=== PATIENT | male | born 1975 | race Caucasian/White ===

== ENCOUNTER 2025-03-26 19:54 | Emergency (ER) | payer OTHER, SELFPAY ==
[2025-03-26] VITALS (31 sets, daily range): BP systolic 89–238; BP diastolic 62–163; PULSE 97–140; RESP 12–30; TEMP 36.2–36.8; O2SAT 88–100; BMI 27.6
--- NOTE | 2025-03-26 20:00 | PD.EDSOB ---
ED SOB =RME/HPI General Chief Complaint: Shortness of Breath/Dyspnea Stated Complaint: SHORTNESS OF BREATH Time Seen by Provider: 03/26/25 20:25 Arrival date/time: 03/26/25 19:54 Mode of arrival: EMS MARNIE / MAY TOLENTINO Complaint: shortness of breath RME / HPI Narrative: DR. 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 Patient reportedly coughed and developed severe difficulty breathing and in [id number] respiratory distress. Oxygen saturations in the high 80 percentile. EMS administered epinephrine, IV established in the field, and patient was placed on high-flow O2 via nonrebreather. Saturation improved to low 90 percentile range. PMH: GERD, Cervical radiculopathy post fusion x2, No DM, Asthma, or HTN PSH: Cervical Fusion x2 Allergies: Codeine Social: Tobacco, Unknown Alcohol or Illicit Drug Abuse Related Data Previous Rx's ?Medication ?Instructions ?Recorded cephalexin 500 mg capsule 500 mg PO QID #40 caps 03/22/21 hydrocodone 5 mg-acetaminophen 325 1 - 2 tab PO Q4H #30 tabs 03/22/21 mg tablet Allergies Allergy/AdvReac Type Severity Reaction Status Date / Time codeine AdvReac Mild UPSET Verified 03/22/21 03:32 STOMACH Review of Systems Review of Systems Systems Reviewed: All systems reviewed, normal except as documented Past Medical History Past Medical History CARDIAC: Positive Hypertension RESPIRATORY: Positive Asthma GASTROINTESTINAL: Positive Gastroesophageal Reflux Disease Social History SMOKING STATUS: Current every day smoker ED Exam Narrative Physical exam: GEN. APPEARANCE: The patient is alert awake oriented X-3 under no distress, lying down comfortably, does not look ill/toxic. Patient has good eye contact. Patient is cooperative. VITALS: All vitals were reviewed and the pulse ox is 100% on 8L/min via nonrebreather mask, which is normal according to my interpretation HEENT: Normocephalic, atraumatic and nontender. Pupils are equal and reactive. Oral mucosa is moist. NECK: Marked circumferential edema with noted stridor. There is no thyromegaly and no lymphadenopathy. CHEST: Nontender on palpation no deformity and no crepitus. CARDIOVASCULAR: Heart regular rhythm, no murmur or gallop rub or extra beats. LUNGS: Clear to auscultation bilaterally with symmetrical chest rise. No laboring tachypnea or wheezing. No intercostal subcostal retraction. No rales and no rhonchi. ABDOMEN: Soft, flat, nontender to palpation, no guarding or rebound tenderness. There are no abnormal masses palpated. No pulsatile masses or bruits. Active and normal bowel sounds. EXTREMITIES: Normal inspection and palpation. No edema. No cyanosis. Patient is able to move all 4 extremities well SKIN: Warm and dry, no rashes noted. MUSCULOSKELETAL: No lumbar or midline bony tenderness. There is no CVA tenderness. No paraspinal muscle spasm or tenderness. NEURO: Cranial nerves II through XII grossly intact. There are no focal neurologic deficits noted. GCS is 15 PSYCHIATRIC: Patient is in normal mood and affect, cooperative. LYMPHATICS: No major lymphadenopathy noted. Course Quality Measures none Orders Category Date Time Status CT Screening NOW Care 03/26/25 20:16 Active Emergency Titration Protocol Stat Care 03/26/25 21:56 Ordered Intubation NOW Care 03/26/25 21:[address] angio carotid Stat Exams 03/26/25 20:[address] angio chest Stat Exams 03/26/25 20:15 Completed XR chest 1V post procedure Stat Exams 03/26/25 20:12 Completed ABG [Arterial Blood Gas] Stat Lab 03/26/25 21:47 Completed CBC Stat Lab 03/26/25 20:49 Completed Comprehensive Metabolic Panel Stat Lab 03/26/25 20:49 Completed Partial Thromboplastin Time Stat Lab 03/26/25 20:49 Completed Sputum Culture and Gram Stain Routine Lab 03/26/25 21:33 Received Type and Screen Stat Lab 03/26/25 20:49 Completed Dexamethasone Inj [Decadron Inj] Med 03/26/25 20:25 Discontinued 10 mg IVP X1 ONE Etomidate Inj [Amidate Inj] Med 03/26/25 20:00 Discontinued 20 mg .ROUTE .STK-MED ONE Etomidate Inj [Amidate Inj] Med 03/26/25 20:28 Discontinued 20 mg IVP X1 ONE Metoclopramide Inj [Reglan Inj] Med 03/26/25 20:47 Discontinued 10 mg IVP X1 ONE Morphine* Inj Med 03/26/25 20:47 Discontinued 4 mg IVP X1 ONE Propofol 1,000 mg Ivpb [Diprivan Ivpb] Med 03/26/25 20:28 Discontinued 1,000 mg in 100 ml IV .STK-MED Propofol 1,000 mg Ivpb [Diprivan Ivpb] Med 03/26/25 20:26 Active 1,000 mg in 100 ml IV 5 mcg/kg/min Propofol Inj [Diprivan Inj] Med 03/26/25 20:25 Discontinued 100 mg IV X1 ONE Rocuronium Inj [Zemuron Inj] Med 03/26/25 20:00 Discontinued 100 mg .ROUTE .STK-MED ONE Rocuronium Inj [Zemuron Inj] Med 03/26/25 20:28 Discontinued 70 mg IV X1 ONE Sodium Chloride 0.9% 500 ml [Ns] 500 ml Med 03/26/25 22:07 Active IV 999 mls/hr fentaNYL 2,500 MCG/250 ML BAG [Sublimaze Inj 2,500 MCG/ Med 03/26/25 21:35 Discontinued 250 ML BAG] 2,500 mcg in 250 ml IV .STK-MED fentaNYL 2,500 MCG/250 ML BAG [Sublimaze Inj 2,500 MCG/ Med 03/26/25 21:38 Active 250 ML BAG] 2,500 mcg in 250 ml IV 25 mcg/hr fentaNYL INJ [Sublimaze Inj] Med 03/26/25 21:37 Discontinued 100 mcg .ROUTE .STK-MED ONE fentaNYL INJ [Sublimaze Inj] Med 03/26/25 21:38 Discontinued 100 mcg IVP X1 ONE Volume Ventilator Stat RT 03/26/25 21:22 Active Vital Signs Vital signs: Vital Signs Temperature 98.2 F 03/26/25 19:59 Pulse Rate 123 H 03/26/25 19:59 Respiratory Rate 21 H 03/26/25 19:59 Blood Pressure 148/115 H 03/26/25 19:59 Pulse Oximetry (%) 100 03/26/25 19:59 Oxygen Delivery Method Oxy Mask 03/26/25 19:59 Oxygen Flow Rate 8 03/26/25 19:59 PROCEDURES: Intubation Time out performed: Yes sedative: Etomidate Mg Given: 20 paralytic: Rocuronium Mg Given: 70 Laryngoscope: fiber optic video scope Assist Device Used: fiber optic device ET Tube Size: 6 ET Tube Uncuffed: Yes Tube Secured Depth (cm): 22 Tube Secured Location: teeth Tube Placement Confirmation: visualized tube passing through cords, equal breath sounds bilaterally and confirmation by capnometry Patient Tolerated Procedure: well and no complications Intubation Complications: other (severe airway encroachment) Shortness of Breath / Dyspnea MDM Narrative MDM Narrative:: Scribe Attestation: I, Helen Montes De Oca, am scribing for and in the presence of Dr. Churchill. Provider Notation: Although this document has been carefully reviewed, there may still be some phonetic and other typographical errors. These errors are purely grammatical due to imperfections in the software program and should not be construed in any way to compromise the substance of the patient's medical care during this visit. 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 Patient reportedly coughed and developed severe difficulty breathing and in [id number] respiratory distress. Please see PE findings. Patient found to be in severe respiratory distress with audible stridor. Decision made to intubate early given marked diffuse neck swelling and suspected hemorrhage (please see procedure note). Patient was placed on Propofol drip for sedation. Contact made with patient's primary surgeon who suggests transfer to [facility]. Final diagnoses include post-surgical edema and acute respiratory failure. Patient data External records reviewed:: [facility] previous records (No recent ED records available for review) and EMS form Clinical information provided by:: EMS Social determinants that could affect healthcare access:: none Patient has the following chronic illnesses:: GERD, Asthma, HTN, Cervical Radiculopathy How is presenting disease/condition affected by chronic disease/condition?: exacerbated by Evaluation data The following diagnostics were reviewed and interpreted by me:: lab results and radiology exam(s) Lab and/or radiology exams considered but not ordered:: None Interpretation Summary: RADIOLOGY Chest X-Ray: FINDINGS: Paratracheal region appears prominent Normal heart size Endotracheal tube tip 7.7 cm above john No aspiration pneumonia IMPRESSION: Prominent paratracheal mediastinal region When the patient's condition permits recommend PA lateral chest follow-up Endotracheal tube tip 7.7 cm above john No aspiration pneumonia Chest CTA: FINDINGS: There is soft tissue air anterior to the right clavicle Large soft tissue mass with irregular areas of enhancement surrounding and posterior to the trachea in the neck, transverse dimension up to 10 cm with air densities, extending into the upper mediastinum as well as all the way to the pretracheal region No thoracic aortic aneurysm dilatation Tracheal tube tip 5 cm above john Pulmonary artery segments are not enlarged Granuloma in the right midlung Moderate right pleural fluid Retrocardiac gastric hernia Fatty infiltration throughout the liver Moderate osteopenia. Impression: Extensive soft tissue mass with air densities in the neck surrounding the trachea with irregular areas of contrast enhancement extending into the upper mediastinum Differential would include large hematoma with active areas of bleeding, neck and mediastinal tumor, soft tissue neck and mediastinal infection not excluded, the appearance should be clinically correlated Negative for pulmonary artery emboli CT Neck Angiography: Findings: Large irregular soft tissue mass prevertebral extending from the oropharynx into the mediastinum, displacing the trachea far anteriorly, transverse dimension nearly 10 cm, AP dimension nearly 7 cm Areas of enhancement lateral to this mass which may be partly thyroid Air densities in this mass The mass extends into the anterior mediastinum all the way to the trachea extending posterior and below the trachea Air density in the soft tissue anterior and retroclavicular on the right Carotid arteries are displaced laterally by this large mass likely hematoma, carotid arteries and vertebral arteries appear grossly intact Tracheal tube projects well above the john No large vessel cerebral occlusion IMPRESSION: Very large soft tissue mass in the neck extending from the oropharynx into the mediastinum displacing the trachea far anteriorly Highest on the differential list is hematoma, less likely infection less likely tumor mass, the appearance should be clinically correlated Medications / Prescriptions Medications or Prescriptions considered but not ordered:: None Medication administrations:: Medication Administration History Propofol (Diprivan Ivpb) 1,000 mg in 100 mls @ 2.926 mls/hr IV .Q24H PRN; Protocol PRN Reason: Per Protocol Stop: 04/25/25 20:25 Last Titration: 03/26/25 22:08 Dose: 45 mcg/kg/min, 26.331 mls/hr Documented By: Titration: 03/26/25 21:20 Dose: 50 mcg/kg/min, 29.257 mls/hr Documented By: Titration: 03/26/25 21:01 Dose: 20 mcg/kg/min, 11.703 mls/hr Documented By: Titration: 03/26/25 20:56 Dose: 15 mcg/kg/min, 8.777 mls/hr Documented By: Titration: 03/26/25 20:51 Dose: 10 mcg/kg/min, 5.851 mls/hr Documented By: Admin: 03/26/25 20:33 Dose: 5 mcg/kg/min, 2.926 mls/hr Documented By: EB Fentanyl Citrate (Sublimaze Inj 2,500 Mcg/250 Ml Bag) 2,500 mcg in 250 mls @ 2.5 mls/hr IV .Q24H PRN; Protocol PRN Reason: Per Protocol Stop: 03/31/25 21:37 Last Admin: 03/26/25 21:50 Dose: 25 mcg/hr, 2.5 mls/hr Documented By: EB Co-signed By: DIMAS Sodium Chloride (Ns) 500 mls @ 999 mls/hr IV .Q31M ONE Stop: 03/26/25 22:37 Discontinued Medications Dexamethasone Sodium Phosphate (Dexamethasone Sod Phos Inj 10 Mg/Ml Vial) 10 mg IVP X1 ONE Stop: 03/26/25 20:26 Last Admin: 03/26/25 20:42 Dose: 10 mg Documented By: EB Etomidate (Etomidate Inj 2 Mg/Ml Vial 10 Ml) Confirm Administered Dose 20 mg .ROUTE .STK-MED ONE Stop: 03/26/25 20:01 Last Admin: 03/26/25 20:29 Dose: Not Given Documented By: DIMAS Non-Admin Reason: Override Medication Etomidate (Etomidate Inj 2 Mg/Ml Vial 10 Ml) 20 mg IVP X1 ONE Stop: 03/26/25 20:29 Last Admin: 03/26/25 20:07 Dose: 20 mg Documented By: CINTIA Fentanyl Citrate (Fentanyl Cit Inj 50 Mcg/Ml Amp 2ml) 100 mcg IVP X1 ONE Stop: 03/26/25 21:39 Last Admin: 03/26/25 21:46 Dose: 100 mcg Documented By: EB Fentanyl Citrate (Fentanyl Cit Inj 50 Mcg/Ml Amp 2ml) Confirm Administered Dose 100 mcg .ROUTE .STK-MED ONE Stop: 03/26/25 21:38 Last Admin: 03/26/25 21:49 Dose: Not Given Documented By: RC Non-Admin Reason: Override Medication Propofol (Diprivan Ivpb) Confirm Administered Dose 1,000 mg in 100 mls @ ud IV .STK-MED ONE Stop: 03/26/25 20:29 Last Admin: 03/26/25 20:40 Dose: Not Given Documented By: EB Non-Admin Reason: Override Medication Fentanyl Citrate (Sublimaze Inj 2,500 Mcg/250 Ml Bag) Confirm Administered Dose 2,500 mcg in 250 mls @ ud IV .STK-MED ONE Stop: 03/26/25 21:36 Last Admin: 03/26/25 21:49 Dose: Not Given Documented By: RC Non-Admin Reason: Override Medication Metoclopramide HCl (Metoclopramide Inj 5 Mg/Ml Vial 2 Ml) 10 mg IVP X1 ONE; Protocol Stop: 03/26/25 20:48 Last Admin: 03/26/25 21:21 Dose: 10 mg Documented By: EB Morphine Sulfate (Morphine Sulf Inj 4 Mg/Ml Vial) 4 mg IVP X1 ONE Stop: 03/26/25 20:48 Last Admin: 03/26/25 21:20 Dose: 4 mg Documented By: EB Propofol (Propofol Inj 10 Mg/Ml Vial 20 Ml) 100 mg IV X1 ONE Stop: 03/26/25 20:26 Last Admin: 03/26/25 20:50 Dose: Not Given Documented By: EB Non-Admin Reason: Change of Condition Rocuronium Morenci (Rocuronium Inj 10 Mg/Ml Vial 10 Ml) Confirm Administered Dose 100 mg .ROUTE .STK-MED ONE Stop: 03/26/25 20:01 Last Admin: 03/26/25 20:29 Dose: Not Given Documented By: RC Non-Admin Reason: Override Medication Rocuronium Morenci (Rocuronium Inj 10 Mg/Ml Vial 10 Ml) 70 mg IV X1 ONE Stop: 03/26/25 20:29 Last Admin: 03/26/25 20:48 Dose: 70 mg Documented By: EB Co-signed By: DIMAS Comments: 30 wasted See above if any Consultations Consultation(s) initiated? (list below): Yes Consultation #1 (Physician, Specialty, Details): Dr. Ortze made aware of the patient?s HPI, PMHx, lab and/or radiology results. Discussed treatment plan. Advises transfer to [facility]. Time: 20:20 Consultation #2 (Physician, Specialty, Details): Patient accepted for transfer at [facility] by Dr. Orourke. Time: 22:15 Diagnosis Shortness of Breath Differential Diagnosis: pulmonary embolism and other (post-surgical edema, acute respiratory failure) Most likely diagnosis given after review of the tests above:: Post-surgical edema and acute respiratory failure Admission Indicated Admission indicated?: not indicated Explain why admission is indicated or not indicated:: Pending transfer to [facility] Admission Request Was there a request for admission?: No Disposition Plan Disposition Plan: Transfer Critical Care Time Critical Care Time Critical Care Time: Yes Total Critical Care Time (min.): 40 Attestation: The high probability of sudden, clinically significant deterioration in the patient?s condition required the highest level of my preparedness to intervene urgently. The services I provided to this patient were to treat and/or prevent clinically significant deterioration. Services included the following: chart data review, reviewing nursing notes and/or old charts, documentation time, diet consultant collaboration regarding findings and treatment options, medication orders and management, direct patient care, vital sign assessments and ordering, interpreting and reviewing diagnostic studies and lab tests. Aggregate critical care time includes only time during which I was engaged in work directly related to the patient?s care, as described above, whether at bedside or elsewhere in the Emergency Department. It did not include time spent performing other reported procedures or the services of residents, students, nurses or physician assistants. Discharge Plan Plan Patient Disposition: [facility]fer [facility] Pt Being Transferred to: [facility] Prescriptions/Referrals Prescriptions/Med Rec: No Action hydrocodone-acetaminophen 5-325 mg tablet 1 - 2 tab PO Q4H MDD 6 Qty: 30 0RF cephalexin 500 mg capsule 500 mg PO QID Qty: 40 0RF Problem List Clinical Impression: Postoperative edema, Acute respiratory failure Patient/Caregiver Discharge Instructions Print Language: Korean Stand Alone Forms: Margot Award Info., Patient Portal Info Letter
[2025-03-26] MEDS: ETOMIDATE INJ 2 MG/ML VIAL 10 ML 20 MG IVP (20:07)
--- NOTE | 2025-03-26 20:12 | XR_ITS ---
EXAMINATION: AP chest single view TECHNIQUE: AP portable supine chest single view Date and time: March 26, 2025, 2033 hours, comparison March 01, 2017 INDICATIONS: Hypoxic respiratory failure post intubation FINDINGS: Paratracheal region appears prominent Normal heart size Endotracheal tube tip 7.7 cm above john No aspiration pneumonia IMPRESSION: Prominent paratracheal mediastinal region When the patient's condition permits recommend PA lateral chest follow-up Endotracheal tube tip 7.7 cm above john No aspiration pneumonia
--- NOTE | 2025-03-26 20:15 | XR_ITS ---
Examination: CTA carotids with intravenous contrast CTA brain, head with intravenous contrast. 2-D sagittal, coronal reconstructions. 3-D reconstructions. Exam date and time: March 26, 2025, 2108 hours INDICATIONS: Onset neck swelling with hypoxic respiratory failure post intubation today CTDI: vol (mGy) 101.19 DLP: (mGycm) 707 Technique: Multiple CTA axial brain, head carotid images post intravenous contrast injection 75 cc Isovue-370 cc, Isovue-370. 2-D sagittal, coronal reconstructions. 3-D reconstructions, 3-D post processing including vascular maximum intensity projection images. Low dose protocols were performed. One or more of the following dose reduction techniques were used; automated exposure control, adjustment of the mA and/or KV according to patient size, use of iterative reconstruction technique. Findings: Large irregular soft tissue mass prevertebral extending from the oropharynx into the mediastinum, displacing the trachea far anteriorly, transverse dimension nearly 10 cm, AP dimension nearly 7 cm Areas of enhancement lateral to this mass which may be partly thyroid Air densities in this mass The mass extends into the anterior mediastinum all the way to the trachea extending posterior and below the trachea Air density in the soft tissue anterior and retroclavicular on the right Carotid arteries are displaced laterally by this large mass likely hematoma, carotid arteries and vertebral arteries appear grossly intact Tracheal tube projects well above the john No large vessel cerebral occlusion IMPRESSION: Very large soft tissue mass in the neck extending from the oropharynx into the mediastinum displacing the trachea far anteriorly Highest on the differential list is hematoma, less likely infection less likely tumor mass, the appearance should be clinically correlated
--- NOTE | 2025-03-26 20:15 | XR_ITS ---
Examination: CTA chest with intravenous contrast 2-D reconstructions 3-D reconstructions, vascular Date and time of exam: March 26, 2025, 2109 hours INDICATIONS: Hypoxic respiratory failure, clinical diagnosis pulmonary embolism CTDI: vol (mGy) 50.54 DLP: (mGycm) 740 Technique: Multiple axial sections of the thorax have been obtained. 3 mm slice thickness, from below the hemidiaphragms to above the apices of the lungs. Mediastinal and lung density settings have been obtained. 2-D sagittal and coronal reconstructions. 3-D angiographic renderings, 3-D volume renderings, 3D post processing, vascular maximum intensity projections obtained. Contrast administered is 75 cc Isovue-370 Low dose protocols dose reduction techniques automated exposure control FINDINGS: There is soft tissue air anterior to the right clavicle Large soft tissue mass with irregular areas of enhancement surrounding and posterior to the trachea in the neck, transverse dimension up to 10 cm with air densities, extending into the upper mediastinum as well as all the way to the pretracheal region No thoracic aortic aneurysm dilatation Tracheal tube tip 5 cm above john Pulmonary artery segments are not enlarged Granuloma in the right midlung Moderate right pleural fluid Retrocardiac gastric hernia Fatty infiltration throughout the liver Moderate osteopenia. Impression: Extensive soft tissue mass with air densities in the neck surrounding the trachea with irregular areas of contrast enhancement extending into the upper mediastinum Differential would include large hematoma with active areas of bleeding, neck and mediastinal tumor, soft tissue neck and mediastinal infection not excluded, the appearance should be clinically correlated Negative for pulmonary artery emboli
[2025-03-26] MEDS: PROPOFOL 1,000 MG IVPB 1,000 MG/100 ML VIAL 2.926 MG IV (20:33)
[2025-03-26] MEDS: DEXAMETHASONE SOD PHOS INJ 10 MG/ML VIAL IVP (20:42)
[2025-03-26] MEDS: ROCURONIUM INJ 10 MG/ML VIAL 10 ML 70 MG IV (20:48)
[2025-03-26 21:13] LABS: Basophils # (Auto) 0.0 Thou/mm3 (0.0-0.2); Basophils % (Auto) 0 % (0-2.5); Eosinophils # (Auto) 0.0 Thou/mm3 (0.0-0.5); Eosinophils % (Auto) 0 % (0-10); Hematocrit 42.5 % (41.0-53.0); Hemoglobin 14.5 g/dL (13.5-16.0); Immature Granulocytes Auto 0.07 Thou/mm3 (0.00-0.00); Lymphocytes # (Auto) 4.0 Thou/mm3 (1.0-4.8); Lymphocytes % (Auto) 26 % (10-50); Mean Corpuscular HGB Conc 34.1 g/dl (31.0-37.0); Mean Corpuscular Hemoglobin 33.0 pg (25.0-35.0); Mean Corpuscular Volume 97 fL (80-100); Monocytes # (Auto) 1.5 Thou/mm3 (0.0-0.8); Monocytes % (Auto) 10 % (0-12); Neutrophils # (Auto) 9.7 Thou/mm3 (1.8-7.7); Neutrophils % (Auto) 64 % (37-80); Nucleated Red Blood Cell # 0.00 Thou/mm3 (0.00-0.00); Nucleated Red Blood Cell % 0 /100 WBC (0); Platelet Count 297 Thou/mm3 (140-440); RDW Standard Deviation 47.5 fL (35.1-43.9); Red Blood Count 4.40 Miln/mm3 (4.50-5.90); White Blood Count 15.2 Thou/mm3 (3.8-10.6)
[2025-03-26] MEDS: MORPHINE SULF INJ 4 MG/ML VIAL IVP (21:20)
[2025-03-26] MEDS: METOCLOPRAMIDE INJ 5 MG/ML VIAL 2 ML 10 MG IVP (21:21)
[2025-03-26 21:29] LABS: Partial Thromboplastin Time 21.1 Seconds (22.0-36.0)
[2025-03-26 21:34] LABS: Alanine Aminotransferase 34 U/L (10-49); Albumin, Serum 4.4 gm/dL (3.5-5.0); Albumin/Globulin Ratio 1.9 (1.2-2.2); Alkaline Phosphatase 66 U/L (46-116); Anion Gap 10 (7-16); Aspartate Amino Transferase 34 U/L (0-34); BUN/Creatinine Ratio 8 Ratio (12-20); Bilirubin,Total 0.6 mg/dL (0.3-1.2); Blood Urea Nitrogen 8 mg/dL (9-23); Calcium 8.8 mg/dL (8.3-10.6); Calcium (Corrected) 8.8 mg/dL (8.5-10.1); Carbon Dioxide 23.2 mMol/L (20.0-31.0); Chloride 108 mMol/L (98-107); Creatinine (Component) 1.0 mg/dL (0.6-1.3); Estimated Creatinine Clearance 102.8 mL/min (>60); Globulin 2.3 gm/dL (2.3-3.5); Glucose 255 mg/dL (74-106); Osmolality,Calculated 288 (275-295); Potassium 3.3 mMol/L (3.4-5.1); Sodium 141 mMol/L (136-145); Total Protein 6.7 gm/dL (5.7-8.2); eGFR > 60 See Note
[2025-03-26] MEDS: fentaNYL CIT INJ 50 mCg/ML AMP 2ML 100 MCG IVP (21:46)
[2025-03-26] MEDS: fentaNYL 2,500 MCG/250 ML BAG 2,500 MCG/250 ML BAG IV (21:50)
[2025-03-26 21:52] LABS: Base Excess -4 (-3-3); HCO3 23 mEq/L (20-26); Inspired Oxygen, FIO2 100 %; O2 Saturation 101 % (91-98); PCO2 43 mmHg (32.0-48.0); PO2 403 mmHg (83-108); pH, Arterial 7.32 (7.35-7.45)
[2025-03-26 21:53] LABS: Puncture Site Right Radial
[2025-03-26 21:54] LABS: Allen Test Performed/OK
[2025-03-26] MEDS: SODIUM CHLORIDE 0.9% 500 ML 500 ML 999 ML IV (22:20)
--- NOTE | 2025-03-26 22:20 | PC.NURSE ---
[facility] WAS CONTACTED FOR POSSIBLE AIR TRANSPORT, WAITING FOR CALL BACK
--- NOTE | 2025-03-26 22:37 | PC.NURSE ---
I CONTACTED [facility] FOR AN UPDATE AND THEY STATED THAT ALL [facility] HAVE DENIED TRANSPORT DUE TO WEATHER AND TO CALL BACK AT 0700 FOR A WEATHER RECHECK
--- NOTE | 2025-03-26 22:49 | PC.NURSE ---
I CONTACTED [facility] TO SEE IF THEY WERE AVAILABLE FOR AIR TRANSPORT, THEY WILL CALL BACK
--- NOTE | 2025-03-26 22:55 | PC.NURSE ---
[facility] RETURNED CALL AND UNFORTUNATELY THEY ARE UNVAILABLE FOR AIR FLIGHT DUE TO WEATHER, STATED TO CALL BACK AROUND 0900 FOR A WEATHER RE-CHECK
[2025-03-26] MEDS: TRANEXAMIC ACID 1,000 MG IVPB 1,000 MG/100 ML BAG 200 MG IV (23:02)
--- NOTE | 2025-03-26 23:34 | PC.NURSE ---
20 inches at 2330
--- NOTE | 2025-03-26 23:47 | PC.NURSE ---
2345 Remains at 20 inches no change
--- NOTE | 2025-03-27 00:13 | PC.NURSE ---
0000 measure remains at 20 inches with no changes
--- NOTE | 2025-03-27 00:13 | PC.NURSE ---
0015, Pt neck still firm, circumference remains unchanged at 20 inches
--- NOTE | 2025-03-27 00:23 | PC.NURSE ---
8867 PT ACCEPTED TO [facility] BY DR MACEDO. REPORT TO [phone]. CALL WITH ETA TO [phone]. [address] [place] [id number] [address] ICU BED 4.
[2025-03-27] MEDS: PROPOFOL 1,000 MG IVPB 1,000 MG/100 ML VIAL 26.331 MG IV ×3 (00:29→04:22)
[2025-03-27 00:34] VITALS: BP 105/81; PULSE 80; RESP 20; TEMP 36.4; O2SAT 99
--- NOTE | 2025-03-27 00:39 | PC.NURSE ---
0030 20 inches no changes
--- NOTE | 2025-03-27 01:05 | PC.NURSE ---
0030 Pt neck circumference remains 20 inches with no changes
--- NOTE | 2025-03-27 01:06 | PC.NURSE ---
0045, Neck size remains unchanged 20
--- NOTE | 2025-03-27 01:07 | PC.NURSE ---
0100, neck circumference remains unchanged at 20
[2025-03-27 02:03] VITALS: BP 112/78; PULSE 75; RESP 19; O2SAT 100
[2025-03-27 03:41] VITALS: BP 107/80; PULSE 74; RESP 16; TEMP 36.6; O2SAT 99
[2025-03-27 05:09] LABS: Base Excess -1 (-3-3); HCO3 25 mEq/L (20-26); Inspired Oxygen, FIO2 70 %; O2 Saturation 100 % (91-98); PCO2 43 mmHg (32.0-48.0); PO2 132 mmHg (83-108); pH, Arterial 7.36 (7.35-7.45)
[2025-03-27 05:10] LABS: Allen Test Performed/OK; Puncture Site Right Radial
--- NOTE | 2025-03-27 05:53 | PC.LAC ---
Pt remains sedasted but has moments of being awake and alert he denies too much pain or discomfort he is able to open his eyes and respond via hand squeeze, eye blink or he also wrote on paper to wash his face Pt remains pleasant and pain and sedation controlled no vent disruptions or decline in Pt condition related to level of sedation. MD lutz
[2025-03-27 06:03] VITALS: BP 100/69; PULSE 75; RESP 18; TEMP 36.1; O2SAT 100
[2025-03-27 06:04] VITALS: BP 100/69; PULSE 78; RESP 18; TEMP 36.6; O2SAT 100
--- NOTE | 2025-03-27 07:28 | PC.NURSE ---
rreport given to icu nurse for transport
[2025-03-27 07:58] VITALS: BP 122/82; PULSE 79
[2025-03-27] MEDS: Norepinephrine/D5W 8mg/250ml 8 MG/250 ML BAG 9.143 MG IV (07:58)
[2025-03-27] MEDS: PROPOFOL 1,000 MG IVPB 1,000 MG/100 ML VIAL 23.405 MG IV (08:01)
== END 2025-03-27 07:56 | disposition short-term general hospital (02) ==
PROVIDERS: Nurse Practitioner Family; Emergency Provider Emergency Medicine; PCP Family Medicine
DX: J96.00 Acute respiratory failure, unspecified whether with hypoxia or hypercapnia (principal); F19.10 Other psychoactive substance abuse, uncomplicated; Z46.82 Encounter for fitting and adjustment of non-vascular catheter
CPT/HCPCS: 36415; 36600; 51702; 70498; 71275; 80053; 82803; 85025; 85730; 86850; 86900; 86901; 87205; 94002; 96361; 96365; 96366; 96375; 99291; 99292; A4314; A4649; J1100; J2270; J2704; J2765; J3010; J3490; J7999; Q9967